=== PATIENT | female | born 1965 | race Caucasian/White ===

== ENCOUNTER 2022-03-02 23:29 | Emergency (ER) | payer SELFPAY ==
[2022-03-02 23:36] VITALS: BP 137/77; PULSE 130; RESP 24; TEMP 37.7; O2SAT 96
--- NOTE | 2022-03-02 23:55 | DI.CT.S_ITS ---
PROCEDURE: CT ABDOMEN PELVIS W CON INDICATIONS: Generalized abdominal pain TECHNIQUE: After the administration of IV contrast, axial sections were acquired from the lung bases to the pubic symphysis. Coronal and sagittal reformats were performed. For radiation dose reduction, the following was used: automated exposure control, adjustment of mA and/or kV according to patient size. COMPARISON: None. FINDINGS: Image quality: Excellent. Lung bases: There is mild dependent atelectasis and scarring. Heart: Heart is normal in size. There is a small hiatal hernia. ABDOMEN: Liver: No mass lesion. Gallbladder: Within normal limits without calcified gallstones. Biliary ducts: No biliary ductal dilatation. Pancreas: Unremarkable. Spleen: Normal in size. Adrenal Glands: No adrenal nodules. Kidneys and Ureters: No hydronephrosis. Stomach and Bowel: Stomach and small bowel loop are normal in caliber and wall thickness. No pericecal inflammatory changes to suggest appendicitis. There is colonic diverticulosis with associated diverticular and segmental colonic wall thickening in the sigmoid colon with pericolonic fat stranding consistent with acute diverticulitis. No diverticular abscess. Peritoneum: There is a small amount of intraperitoneal fluid in the pelvis. No macroscopic free air. Ventral Wall: No hernia. Abdominal Nodes: No retroperitoneal or mesenteric adenopathy by size criteria. Vessels: Aorta and inferior vena cava are normal in size. PELVIS: Pelvic Organs: Unremarkable. Bladder: Unremarkable. Pelvic Nodes: No enlarged lymph nodes. Miscellaneous: No inguinal hernias are seen. Bones: Visualized osseous structures demonstrate no suspicious focal lesions. IMPRESSION: 1. Sigmoid diverticulitis without evidence of diverticular abscess or macroscopic free air. Dictated by: José Clement M.D. on 03/03/2022 at 2:05 Approved by: José Clement M.D. on 03/03/2022 at 2:17
--- NOTE | 2022-03-02 23:55 | ED_ITS ---
HPI - General Adult General Chief complaint: Abdominal Pain Stated complaint: abd pain, fever Time Seen by Provider: 03/02/22 23:43 Source: patient Mode of arrival: Ambulatory Limitations: no limitations History of Present Illness HPI narrative: 56-year-old female here for evaluation of abdominal pain and fever and concerns for constipation. States that over the past 24 hours she has had worsening lower abdominal discomfort and the sensation like she had a bowel movement but could not. She did try oral laxatives and also a suppository without improvement. Developed fevers throughout the day. Describes the pain in her lower abdomen. No urinary symptoms. Started vomiting fall she was driving to the emergency department. She did have similar symptoms many years ago that resolved on their own. Related Data Previous Rx's Medication Instructions Recorded norgestimate 0.18 mg/0.215 mg/0.25 1 tab PO DAILY #84 tabs 03/25/20 mg-ethinyl estradiol 25 mcg tablet (Dqw-Qt-Aprduzeod) varenicline 1 mg tablet 1 mg PO BID #56 tabs 03/25/20 ciprofloxacin HCl 500 mg tablet 500 mg PO BID 10 days #20 tabs 03/03/22 (Cipro) metronidazole 500 mg tablet 500 mg PO TID 10 days #30 tabs 03/03/22 Allergies Allergy/AdvReac Type Severity Reaction Status Date / Time Sulfa (Sulfonamide Allergy Severe Hives, Verified 03/25/20 14:11 Antibiotics) itching. Review of Systems Constitutional Constitutional: Reports fever(s) Cardiovascular Cardiovascular: Reports system reviewed and no additional complaints, except as documented Respiratory Respiratory: Reports system reviewed and no additional complaints, except as documented Gastrointestinal Gastrointestinal: Reports as per HPI and Reports system reviewed and no additional complaints, except as documented Genitourinary Genitourinary: Reports system reviewed and no additional complaints, except as documented and Reports as per HPI Hematologic/Lymphatic On Anticoagulants: No Patient History Medical History Amenorrhea, secondary Breast cancer screening Postmenopausal HRT (hormone replacement therapy) Tobacco abuse Tobacco abuse counseling Well woman exam Surgical History History of third molar tooth extraction Status post adenoidectomy Family History Father Heart disease Grandfather Cancer Grandmother Heart disease Mother Hypertension Grandfather Cancer Social History Smoking Status: Current every day smoker (started cessation) quit status: considering quitting Smoking Status: Current every day smoker (started cessation) Exam Initial Vital Signs Initial Vital Signs: Vital Signs Temperature 99.9 F H 03/02/22 23:36 Pulse Rate 130 H 03/02/22 23:36 Respiratory Rate 24 03/02/22 23:36 Blood Pressure 137/77 03/02/22 23:36 Pulse Oximetry 96 03/02/22 23:36 Oxygen Delivery Method 03/02/22 23:36 HENMT Head: normal to inspection and normocephalic Resp Effort & Inspection: normal respiratory effort Auscultation: clear to auscultation bilaterally Cardio Rate: tachycardic Rhythm: regular rhythm GI Inspection: normal to inspection and non-distended Palpation: soft, No firm and tender (Suprapubic) Skin General: no rashes or lesions noted Neuro General: patient alert, patient awake and moves all extremities Extrem General: capillary refill normal Psych Appearance: grossly normal and well kempt Course Orders Ordered: ED Orders 03/02/22 23:43 Complete Blood Count AUTO DIFF Stat Comprehensive Metabolic Panel Stat 03/02/22 23:44 Lipase Stat 03/02/22 23:55 CT abdomen pelvis w con Stat Discontinued Medications Hydrocodone Bitart/Acetaminophen (Hydrocodone/Acet 5/325 Prepack) 1 bottle MISC SEEINSTR ONE Stop: 03/03/22 02:36 Ciprofloxacin (Ciprofloxacin 250 Mg Tablet) 500 mg PO NOW ONE Stop: 03/03/22 02:25 Hydromorphone HCl (Hydromorphone 0.5 Mg Inj) 0.5 mg IV NOW ONE Stop: 03/02/22 23:56 Last Admin: 03/03/22 00:08 Dose: 0.5 mg Documented By: MICHI Hydromorphone HCl (Hydromorphone 0.5 Mg Inj) 0.5 mg IV NOW ONE Stop: 03/03/22 01:09 Last Admin: 03/03/22 01:21 Dose: 0.5 mg Documented By: MICHI Sodium Chloride (Normal Saline 0.9%) 1,000 mls @ 500 mls/hr IV BOLUS ONE Stop: 03/03/22 01:42 Last Admin: 03/03/22 00:08 Dose: 500 mls/hr Documented By: MICHI Metronidazole (Metronidazole 500 Mg Tablet) 500 mg PO NOW ONE Stop: 03/03/22 02:25 Ondansetron HCl (Ondansetron 4 Mg/2 Ml Inj) 4 mg IV NOW ONE Stop: 03/02/22 23:56 Last Admin: 03/03/22 00:08 Dose: 4 mg Documented By: MICHI Ondansetron HCl (Ondansetron 4 Mg Odt Prepack) 1 bottle MISC SEEINSTR ONE Stop: 03/03/22 02:36 Vital Signs Vital signs: Vital Signs - 8 hr 03/02/22 23:36 03/03/22 01:35 03/03/22 01:30 Temperature 99.9 F H Pulse Rate 130 H 108 H Respiratory Rate 24 17 Blood Pressure 137/77 113/57 L 113/57 L Pulse Oximetry 96 95 Oxygen Delivery Method Room Air Nasal Cannula Oxygen Flow Rate 2 03/03/22 01:30 03/03/22 02:00 03/03/22 02:00 Temperature Pulse Rate 107 H 109 H Respiratory Rate Blood Pressure 103/58 L Pulse Oximetry 93 94 Oxygen Delivery Method Oxygen Flow Rate Medical Decision Making Lab Data Lab results reviewed: Yes I reviewed the patient's lab results. Result diagrams: 03/03/22 00:10 03/03/22 00:10 Labs: Lab Results 03/03/22 03/03/22 03/03/22 Range/Units 00:10 00:10 00:10 WBC 9.7 (4.5-11.0) X10^3/uL RBC 4.24 (4.0-5.2) X10^6/uL Hgb 13.1 (12.0-16.0) g/dL Hct 37.7 (36-46) % MCV 88.8 (80-100) fL MCH 31.0 (26-34) PG MCHC 34.9 (30-36) % RDW 12.7 (11.6-14.8) % Plt Count 253 (150-400) X10^3/uL Neut % (Auto) 88.3 H (50-75) % Lymph % (Auto) 7.7 L (25-40) % [place] % (Auto) 3.6 (3-14) % Eos % (Auto) 0.3 L (2-4) % Baso % (Auto) 0.1 (0-2) % Neut # (Auto) 8600 H (5016-2973) /uL Lymph # (Auto) 800 L (4338-8896) /uL [place] # (Auto) 300 (0-900) /uL Eos # (Auto) 0 (0-450) /uL Baso # (Auto) 0 (0-100) /uL Sodium 134 L (137-145) mmol/L Potassium 3.6 (3.4-5.1) mmol/L Chloride 103 (98-107) mmol/L Carbon Dioxide 23 (22-32) mmol/L BUN 7 (7-17) mg/dL Creatinine 0.72 (0.52-1.04) mg/dL Estimated GFR > 60 (>60) mL/min BUN/Creatinine Ratio 9.7 (6-22) Glucose 142 H (70-100) mg/dL Calcium 8.4 (8.4-10.2) mg/dL Total Bilirubin 0.6 (0.2-1.3) mg/dL AST 25 (14-36) IU/L ALT 20 (<35) IU/L Alkaline Phosphatase 103 (38-126) U/L Total Protein 6.6 (6.3-8.2) g/dL Albumin 4.0 (3.5-5.0) g/dL Globulin 2.6 (1.7-4.1) g/dL Albumin/Globulin Ratio 1.5 (1.0-2.8) Lipase 67 (23-300) U/L Imaging Data CT scan - abdomen/pelvis: Radiologist's Impression: [place] [address] CT Scan Report Signed Patient: Stephany Lopes MR#: [id number] : 1965 Acct:[id number] Age/Sex: 56 / F Date of Service: 03/02/22 Loc: ED Accession Number: [id number] ?? Procedure: CT abdomen pelvis w con Ordering Provider: Carlos Rosenberg D.O. PROCEDURE:? CT ABDOMEN PELVIS W CON ? INDICATIONS:? Generalized abdominal pain ? TECHNIQUE:? After the administration of IV contrast, axial sections were acquired from the lung bases to the pubic symphysis.? Coronal and sagittal reformats were performed.? For radiation dose reduction, the following was used:? automated exposure control, adjustment of mA and/or kV according to patient size. ? COMPARISON:? None. ? FINDINGS:? Image quality:? Excellent.? ? Lung bases:? There is mild dependent atelectasis and scarring.? ? Heart:? Heart is normal in size.? There is a small hiatal hernia. ? ? ABDOMEN: Liver:? No mass lesion. Gallbladder:? Within normal limits without calcified gallstones.? ? Biliary ducts:? No biliary ductal dilatation.? ? Pancreas:? Unremarkable.? ? Spleen:? Normal in size.? ? Adrenal Glands:? No adrenal nodules.? ? Kidneys and Ureters:? No hydronephrosis.? ? ? Stomach and Bowel:? Stomach and small bowel loop are normal in caliber and wall thickness.? No pericecal inflammatory changes to suggest appendicitis.? There is colonic diverticulosis with associated diverticular and segmental colonic wall thickening in the sigmoid colon with pericolonic fat stranding consistent with acute diverticulitis.? No diverticular abscess.? Peritoneum:? There is a small amount of intraperitoneal fluid in the pelvis.? No macroscopic free air.? ? Ventral Wall: ? No hernia.? Abdominal Nodes:? No retroperitoneal or mesenteric adenopathy by size criteria.? Vessels:? Aorta and inferior vena cava are normal in size.? ? PELVIS: Pelvic Organs:? Unremarkable.? ? Bladder:? Unremarkable.? ? Pelvic Nodes: No enlarged lymph nodes.? Miscellaneous: No inguinal hernias are seen. ? ? ? Bones:? Visualized osseous structures demonstrate no suspicious focal lesions. ? IMPRESSION:? ? 1. Sigmoid diverticulitis without evidence of diverticular abscess or macroscopic free air.? ? ? Dictated by: José Clement M.D. on 03/03/2022 at 2:05 ? ? Approved by: José Clement M.D. on 03/03/2022 at 2:17?? [facility] Narrative Medical decision making narrative: Labs are unremarkable. CT scan consistent with diverticulitis which does correspond to her presenting symptoms today. No indication of perforation or abscess. Was given 1st dose of antibiotics here in the ER and a prescription was sent to the pharmacy of her choice. We did discuss diverticulitis. We discussed return precautions and follow-up instructions. She expressed understanding and agreement. Discharge Plan Departure Patient Disposition: Home Clinical Impression: Diverticulitis Instructions: DI for Diverticulitis Activity Restrictions/Additional Instructions: Continue to take the antibiotics as directed. Contact your primary doctor for a follow-up. Return to the emergency department for any new or worsening symptoms. Prescriptions: New ciprofloxacin HCl [Cipro] 500 mg tablet 500 mg PO BID 10 Days Qty: 20 0RF metronidazole 500 mg tablet 500 mg PO TID 10 Days Qty: 30 0RF No Action varenicline 1 mg tablet 1 mg PO BID Qty: 56 2RF Rx Instructions: Take 1 tab by mouth twice daily for smoking cessation norgestimate-ethinyl estradiol [Nma-Xj-Ancrkpcdc] 0.18/0.215/0.25 mg-25 mcg tablet 1 tab PO DAILY Qty: 84 3RF Rx Instructions: Take 1 tab by mouth daily for contraception and for menopausal symptoms
[2022-03-03] MEDS: HYDROMORPHONE 0.5 MG INJ IV ×2 (00:08→01:21)
[2022-03-03] MEDS: SODIUM CHLORIDE 0.9% 1,000 ML 500 ML IV (00:08)
[2022-03-03] MEDS: ONDANSETRON 4 MG/2 ML INJ IV (00:08)
[2022-03-03 00:24] LABS: Add Manual Diff / Slide Review NO; Basophils Absolute Auto 0 /uL (0-100); Basophils Percent Auto 0.1 % (0-2); Eosinophils Absolute Auto 0 /uL (0-450); Eosinophils Percent Auto 0.3 % (2-4); Hematocrit 37.7 % (36-46); Hemoglobin 13.1 g/dL (12.0-16.0); Lymphocytes Absolute Auto 800 /uL (1100-4500); Lymphocytes Percent Auto 7.7 % (25-40); Mean Corpuscular HGB Conc 34.9 % (30-36); Mean Corpuscular Volume 88.8 fL (80-100); Monocytes Absolute Auto 300 /uL (0-900); Monocytes Percent Auto 3.6 % (3-14); Neutrophils Absolute Auto 8600 /uL (1500-7000); Neutrophils Percent Auto 88.3 % (50-75); Platelet Count 253 X10^3/uL (150-400); Red Blood Cell Count 4.24 X10^6/uL (4.0-5.2); Red Cell Distribution Width 12.7 % (11.6-14.8); White Blood Cell Count 9.7 X10^3/uL (4.5-11.0)
[2022-03-03 00:37] LABS: Alanine Aminotransferase 20 IU/L (<35); Albumin Globulin Ratio 1.5 (1.0-2.8); Alkaline Phosphatase 103 U/L (38-126); Aspartate Aminotransferase 25 IU/L (14-36); BUN Creatinine Ratio 9.7 (6-22); Bilirubin Total 0.6 mg/dL (0.2-1.3); Blood Urea Nitrogen 7 mg/dL (7-17); Calcium 8.4 mg/dL (8.4-10.2); Carbon Dioxide 23 mmol/L (22-32); Chloride 103 mmol/L (98-107); Estimated Glomerular Filt Rate > 60 mL/min (>60); Globulin 2.6 g/dL (1.7-4.1); Glucose 142 mg/dL (70-100); HEMOLYSIS < 15 (0-50); Lipase 67 U/L (23-300); Potassium 3.6 mmol/L (3.4-5.1); Sodium 134 mmol/L (137-145); Total Protein 6.6 g/dL (6.3-8.2)
[2022-03-03 01:30] VITALS: BP 113/57; PULSE 107; O2SAT 93
[2022-03-03 01:35] VITALS: BP 113/57; PULSE 108; RESP 17; O2SAT 95
[2022-03-03 02:00] VITALS: BP 103/58; PULSE 109; O2SAT 94
[2022-03-03] MEDS: ONDANSETRON 4 MG ODT PREPACK 1 BOTTLE MISC (02:48)
[2022-03-03] MEDS: HYDROCODONE/ACET 5/325 PREPACK 1 BOTTLE MISC (02:48)
[2022-03-03] MEDS: metroNIDAZOLE 500 MG TABLET PO (02:48)
[2022-03-03] MEDS: CIPROFLOXACIN 250 MG TABLET 500 MG PO (02:48)
[2022-03-03 02:58] VITALS: BP 96/55; PULSE 108; RESP 15; TEMP 37.2; O2SAT 95
== END 2022-03-03 03:13 | disposition home or self-care (01) ==
PROVIDERS: Emergency Provider Emergency Medicine
DX: K57.92 Diverticulitis of intestine, part unspecified, without perforation or abscess without bleeding (principal)
CPT/HCPCS: 36415; 74177; 80053; 83690; 85025; 96361; 96374; 96375; 96376; 99284; 99285; J1170; J2405; Q9967

== ENCOUNTER → 2022-03-13 16:04 | Outpatient (CLI) | payer SELFPAY | PROVIDERS: PCP Nurse Practitioner Family; Visit Provider Nurse Practitioner Family | DX: N89.8 Other specified noninflammatory disorders of vagina (principal) | CPT/HCPCS: 87210 ==

== ENCOUNTER → 2022-05-11 08:02 | Outpatient (CLI) | payer SELFPAY ==
[2022-05-11 08:51] LABS: Appearance Urine UA CLOUDY; Bilirubin Urine UA 1+ (NEGATIVE); Color Urine UA ORANGE; Glucose Urine UA 1+ g/dL (Negative); Ketones Urine UA TRACE (NEGATIVE); Leukocyte Esterase Urine UA 3+ (NEGATIVE); Nitrite Urine UA POSITIVE (Negative); Occult Blood Urine UA 3+ (Negative); Protein Urine UA 3+ (Negative); Specific Gravity Urine UA 1.015 (1.000-1.035); Urobilinogen Urine UA >=8.0 E.U./dL (0.2)
[2022-05-11 09:01] LABS: pH Urine UA 6.5 (4.5-8.0)
[2022-05-11 09:02] LABS: Bacteria Urine Many (>30); Culture Indicated Urine Specimen Cultured; RBC Urine >100/HPF (0-5/HPF); WBC Urine >100/HPF (0-5/HPF)
[2022-05-11 12:46] LABS: Ictotest Urine Negative (Negative)
== END ==
PROVIDERS: PCP Pediatrics; Referring Provider Pediatrics; Visit Provider Pediatrics
DX: R30.0 Dysuria (principal)
CPT/HCPCS: 81001; 87077; 87086; 87186